=== PATIENT | male | born 1970 | race African-American/Black ===

== ENCOUNTER 2018-02-18 10:23 | Emergency (ER) | payer SELFPAY ==
[2018-02-18] MEDS ORDERED: Sodium Chloride 0.9% 10 ML Syringe FLUSH PRN (10:27)
[2018-02-18] MEDS ORDERED: Ondansetron 4 MG/2 ML SDV IVPUSH ONE (10:29)
[2018-02-18] MEDS ORDERED: Pantoprazole 40 MG Vial IVPUSH ONE (10:29)
[2018-02-18] MEDS ORDERED: GI Cocktail Oral Solution 30 ML PO ONE (10:32)
--- NOTE | 2018-02-18 10:36 | EDM.PDOC ---
ED HPI GENERAL MEDICAL PROBLEM - General Chief Complaint: Cardiovascular Problem Stated Complaint: CHEST PAIN Time Seen by Provider: 02/18/18 10:27 Source of Information: Reports: Patient, EMS, EMS Notes Reviewed, RN, RN Notes Reviewed History Limitations: Reports: No Limitations - History of Present Illness INITIAL COMMENTS - FREE TEXT/NARRATIVE: Patient is brought to the ED at [facility] via EMS complaining of severe epigastric pain that does not radiate. EMS gave the patient 4, 81mg ASA, and 2 SL Nitro without any relief of the pain. Patient has a history of OH with one stent placement about one year ago. Patient feels nauseated. No vomiting. No diarrhea. Patient was able to eat a significant breakfast this morning. No focal neurological problems. No SOB. No cough. Patient has not taken his blood pressure medications for about one week. Onset: Today, Sudden Onset Date: 02/18/18 low mid chest/mid epig area Pain Score (Numeric/FACES): 4 - Related Data Allergies Allergy/AdvReac Type Severity Reaction Status Date / Time No Known Allergies Allergy Verified 02/18/18 10:34 Home Meds: Home Meds . [No Known Home Meds] 07/25/15 [History] Metoprolol Succinate 1 tab PO DAILY 30 Days #30 tab.er.24h 02/18/18 [Rx] Past Medical History - Past Health History Medical/Surgical History: Denies Medical/Surgical History Gastrointestinal History: Reports: Other (See Below) Other Gastrointestinal History: . Other Musculoskeletal History: . - Past Surgical History GI Surgical History: Reports: Appendectomy ED ROS GENERAL - Review of Systems Review Of Systems: See Below Constitutional: Denies: Fever, Chills Respiratory: Denies: Shortness of Breath, Cough Cardiovascular: Reports: Chest Pain. Denies: Lightheadedness, Palpitations GI/Abdominal: Reports: Abdominal Pain, Nausea. Denies: Vomiting Skin: Reports: No Symptoms Neurological: Reports: No Symptoms ED EXAM, GENERAL - Physical Exam Exam: See Below Exam Limited By: No Limitations General Appearance: Alert, No Apparent Distress Respiratory/Chest: No Respiratory Distress, Lungs Clear, Normal Breath Sounds Cardiovascular: Normal Peripheral Pulses, Regular Rate, Rhythm Peripheral Pulses: 2+: Radial (L), Radial (R) GI/Abdominal: Guarding, Rigid, Tender (epigastric), Abnormal Bowel Sounds ( Hypoactive). No: Rebound Neurological: Alert, Oriented Skin Exam: Warm, Dry, Intact, Normal Color EKG INTERPRETATION EKG Date: 02/18/18 Time: 10:23 Rhythm: NSR Rate (Beats/Min): 91 [place]: Normal P-Wave: Present QRS: Normal ST-T: Normal QT: Normal OR/PQ Interval: 0.16 Comparison: No Change EKG Interpretation Comments: 1. Normal Sinus Rhythm 2. Possible left atrial enlargement Course - Vital Signs Last Recorded V/S: Last Vital Signs Temp 37.7 C 02/18/18 10:23 Pulse 80 02/18/18 11:33 Resp 21 H 02/18/18 10:23 BP 157/114 H 02/18/18 11:33 Pulse Ox 97 02/18/18 10:23 - Orders/Labs/Meds Orders: Active Orders 24 hr Category Date Time Status EKG 12 Lead [EKG Documentation Completion] [RC] STAT Care 02/18/18 10:27 Active Chest 2V [CR] Stat Exams 02/18/18 10:28 Taken Metoprolol Succinate [Toprol XL] Med 02/18/18 11:34 Once 25 mg PO ONETIME ONE Sodium Chloride 0.9% [Saline Flush] Med 02/18/18 10:27 Active 10 ml FLUSH ASDIRECTED PRN Peripheral IV Insertion Adult [OM.PC] Routine Oth 02/18/18 10:27 Ordered Medication Orders Sodium Chloride (Saline Flush) 10 ml FLUSH ASDIRECTED PRN PRN Reason: Keep Vein Open Labs: Laboratory Tests 02/18/18 02/18/18 Range/Units 10:37 10:37 WBC 8.4 (4.0-10.0) x10^3/uL RBC 5.30 (4.5-6.0) x10^6/uL Hgb 15.0 (14.0-18.0) g/dL Hct 43.9 (40.0-52.0) % MCV 82.8 (78.0-93.0) fL MCH 28.3 (26.0-32.0) pg MCHC 34.2 (32.0-36.0) g/dL RDW Coeff of Michele 13.4 (10.0-15.0) % Plt Count 252 (130-400) x10^3/uL Neut % (Auto) 54.8 (50.0-80.0) % Lymph % (Auto) 32.3 (25.0-50.0) % Emanuel % (Auto) 7.8 (2.0-11.0) % Eos % (Auto) 4.9 H (0.0-4.0) % Baso % (Auto) 0.2 (0.2-1.2) % Sodium 136 (136-145) mmol/L Potassium 3.7 (3.5-5.1) mmol/L Chloride 102 (98-107) mmol/L Carbon Dioxide 24 (21-32) mmol/L Anion Gap 13.7 (10-20) mmol/L BUN 15 (7-18) mg/dL Creatinine 1.2 (0.70-1.30) mg/dL Est Cr Clr Drug Dosing 82.63 mL/min Estimated GFR (MDRD) > 60 Glucose 98 (74-106) mg/dL Calcium 9.4 (8.5-10.1) mg/dL Corrected Calcium 9.64 (8.5-10.1) mg/dL Total Bilirubin 0.6 (0.2-1.0) mg/dL AST 18 (15-37) U/L ALT 23 (16-63) U/L Alkaline Phosphatase 80 (46-116) U/L Creatine Kinase 184 (39-308) U/L Troponin I < 0.017 (<=0.056) ng/mL Total Protein 8.0 (6.4-8.2) g/dL Albumin 3.7 (3.4-5.0) g/dL Globulin 4.3 Albumin/Globulin Ratio 0.86 Amylase 93 (25-115) U/L Lipase 142 (73-393) U/L Meds: Medications Generic Name Dose Route Start Last Admin Trade Name Freq PRN Reason Stop Dose Admin Sodium Chloride 10 ml 02/18/18 10:27 Saline Flush FLUSH ASDIRECTED PRN Keep Vein Open Discontinued Medications Generic Name Dose Route Start Last Admin Trade Name Freq PRN Reason Stop Dose Admin Al Hydroxide/Mg Hydroxide 30 ml 02/18/18 10:32 02/18/18 10:54 Gi Cocktail PO 02/18/18 10:33 30 ml ONETIME ONE Administration Enalaprilat 1.25 mg 02/18/18 10:44 02/18/18 11:00 Vasotec Iv IVPUSH 02/18/18 10:45 1.25 mg ONETIME ONE Administration Ondansetron HCl 4 mg 02/18/18 10:29 02/18/18 10:57 Zofran IVPUSH 02/18/18 10:30 4 mg ONETIME ONE Administration Pantoprazole Sodium 40 mg 02/18/18 10:29 02/18/18 10:54 Protonix Iv IVPUSH 02/18/18 10:30 40 mg ONETIME ONE Administration Departure - Departure Time of Disposition: 11:37 Disposition: Home, Self-Care 01 Reason for Transfer *Q: Other Condition: Good Clinical Impression: Epigastric pain GERD (gastroesophageal reflux disease) Qualifiers: Esophagitis presence: with esophagitis Qualified Code(s): K21.0 - Gastro- esophageal reflux disease with esophagitis Prescriptions: Metoprolol Succinate 1 tab PO DAILY 30 Days #30 tab.er.24h Instructions: Food Choices for Gastroesophageal Reflux Disease, Adult, Easy-to- Read, Gastroesophageal Reflux Disease, Adult Referrals: PCP,None [Primary Care Provider] - Forms: ED Department Discharge Additional Instructions: 1. Stay well hydrated and rest 2. Eat a bland diet, avoid greasy, fatty foods, no carbonated beverages 3. Start taking blood pressure medication daily as prescribed 4. Establish care with a Primary when able - Problem List Review Problem List Initiated/Reviewed/Updated: Yes - My Orders Last 24 Hours: My Active Orders 02/18/18 10:27 EKG 12 Lead [EKG Documentation Completion] [RC] STAT Sodium Chloride 0.9% [Saline Flush] 10 ml FLUSH ASDIRECTED PRN Peripheral IV Insertion Adult [OM.PC] Routine 02/18/18 10:28 Chest 2V [CR] Stat 02/18/18 11:34 Metoprolol Succinate [Toprol XL] 25 mg PO ONETIME ONE - Assessment/Plan Last 24 Hours: My Active Orders 02/18/18 10:27 EKG 12 Lead [EKG Documentation Completion] [RC] STAT Sodium Chloride 0.9% [Saline Flush] 10 ml FLUSH ASDIRECTED PRN Peripheral IV Insertion Adult [OM.PC] Routine 02/18/18 10:28 Chest 2V [CR] Stat 02/18/18 11:34 Metoprolol Succinate [Toprol XL] 25 mg PO ONETIME ONE Assessment:: Epigastric Pain GERD Plan: Labs and xray reviewed with patient. No cardiac involvement. Will treat for GERD as patient seem to respond well to the medications. Will give patient a one time dose of Toprol XL for blood pressure given history of OH with stent. Script also given for one month. Patient may want to start an OTC PPI for his current symptoms. Needs to find a primary to follow his care.
[2018-02-18] MEDS ORDERED: Enalaprilat 1.25 MG/ML SDV IVPUSH ONE (10:44)
[2018-02-18 11:10] LABS: ANION GAP 13.7 mmol/L (10-20); CHLORIDE,CL 102 mmol/L (98-107); SODIUM,NA 136 mmol/L (136-145)
[2018-02-18 11:33] VITALS: BP 157/114
[2018-02-18] MEDS ORDERED: Metoprolol Succinate 25 MG Tab.ER PO ONE (11:34)
== END 2018-02-18 11:55 | disposition home or self-care (01) ==
LOC: VM.ED 10:23
DX: K21.0 Gastro-esophageal reflux disease with esophagitis (principal)
CPT/HCPCS: 36415; 71046; 80053; 82150; 82550; 83690; 84484; 85025; 93005; 96374; 96375; 99285; A9270-GY; C9113; J2405